=== PATIENT | female | born 1950 | race Caucasian/White ===

== ENCOUNTER 2020-11-05 09:28 | Emergency (ER) | payer MEDICARE ==
[~2020-11-05] VITALS: Ht 152.4 cm; Wt 63.0 kg
[2020-11-05] MEDS ORDERED: FAMOTIDINE20 M1 PO (09:59)
[2020-11-05] MEDS ORDERED: TRICOR145 MG PO (09:59)
[2020-11-05] MEDS ORDERED: PANTOPRAZOLE SO40 M1 PO (10:00)
[2020-11-05] MEDS ORDERED: HYDROCHLOROT25 MG PO (10:02)
[2020-11-05] MEDS ORDERED: CITALOPRAM40 MG PO (10:03)
[2020-11-05] MEDS ORDERED: FLONASE AL50 MCG/AC1 NAB (10:04)
[2020-11-05] MEDS ORDERED: METROGEL1 % EX (10:04)
[2020-11-05] MEDS ORDERED: AMOX/K CLAV875 M1 PO ×4 (10:11→10:26)
[2020-11-05] MEDS ORDERED: FLOXIN OTIC0.3 % AD ×3 (10:11→10:26)
[2020-11-05 10:20] VITALS: BP 120/72
== END 2020-11-05 10:20 | disposition home or self-care (01) ==
LOC: ED 09:28
DX: H66.91 Otitis media, unspecified, right ear (principal); I10 Essential (primary) hypertension; J45.909 Unspecified asthma, uncomplicated

== ENCOUNTER 2021-04-12 18:03 | Emergency (ER) | payer OTHER, MEDICARE ==
[~2021-04-12] VITALS: Ht 152.4 cm; Wt 122.0 kg
[~2021-04-12 18:03] MED LIST: AMOX/K CLAV875 M1 PO; CITALOPRAM40 MG PO; FAMOTIDINE20 M1 PO; FLONASE AL50 MCG/AC1 NAB; FLOXIN OTIC0.3 % AD; HYDROCHLOROT25 MG PO; METROGEL1 % EX; PANTOPRAZOLE SO40 M1 PO; TRICOR145 MG PO
[2021-04-12] MEDS ORDERED: LOSARTAN/HCT1 TA1 PO (19:25)
[2021-04-12] MEDS ORDERED: HYDROCHLOROT25 MG PO (19:35)
[2021-04-12] MEDS ORDERED: PROTONIX40 M2 PO (19:35)
[2021-04-12] MEDS ORDERED: VENTOLIN HFA IN (19:35)
[2021-04-12] MEDS ORDERED: CITALOPRAM40 MG PO (19:35)
[2021-04-12] MEDS ORDERED: NAPROXEN500 MG PO (20:22)
[2021-04-12 20:47] VITALS: BP 167/78
== END 2021-04-12 21:30 | disposition home or self-care (01) | DRG 552 ==
LOC: ED 18:03
DX: S13.9XXA Sprain of joints and ligaments of unspecified parts of neck, initial encounter (principal); I10 Essential (primary) hypertension; J45.909 Unspecified asthma, uncomplicated; V49.50XA Passenger injured in collision with unspecified motor vehicles in traffic accident, initial encounter

== ENCOUNTER 2022-05-20 20:57 | Emergency (ER) | payer MEDICARE ==
[~2022-05-20] VITALS: Ht 152.4 cm; Wt 137.0 kg
[~2022-05-20 20:57] MED LIST changes: +LOSARTAN/HCT1 TA1 PO; +NAPROXEN500 MG PO; +PROTONIX40 M2 PO; +VENTOLIN HFA IN
[2022-05-20 21:34] VITALS: BP 95/43
[2022-05-20 22:00] VITALS: BP 88/45
[2022-05-20 22:24] VITALS: BP 99/52
[2022-05-20 22:30] VITALS: BP 99/49
[2022-05-20 23:00] VITALS: BP 103/53
[2022-05-20 23:30] VITALS: BP 111/54
[2022-05-21] VITALS: BP 113/56
[2022-05-21 00:17] VITALS: BP 113/56
== END 2022-05-21 00:47 | disposition home or self-care (01) ==
LOC: ED 20:57
DX: S86.812A Strain of other muscle(s) and tendon(s) at lower leg level, left leg, initial encounter (principal); I10 Essential (primary) hypertension; E78.00 Pure hypercholesterolemia, unspecified; J45.909 Unspecified asthma, uncomplicated; X58.XXXA Exposure to other specified factors, initial encounter